=== PATIENT | male | born 1965 | race Caucasian/White ===

== ENCOUNTER 2021-02-23 12:10 | Emergency (ER) | payer OTHER, SELFPAY ==
[2021-02-23 12:20] VITALS: BP 132/78; PULSE 92; RESP 16; TEMP 36.6; O2SAT 99
--- NOTE | 2021-02-23 15:08 | PC.NURSE ---
no answer for repeat vital signs.
== END 2021-02-23 15:08 | disposition left against medical advice (07) ==
LOC: ANHED 15:35
PROVIDERS: PCP Internal Medicine
DX: Z53.21 Procedure and treatment not carried out due to patient leaving prior to being seen by health care provider (principal)
CPT/HCPCS: 99199